=== PATIENT | female | born 1935 | race Caucasian/White ===

== ENCOUNTER → 2016-09-05 | Emergency (ER) | payer MEDICARE, OTHER ==
[2016-09-05 11:19] LABS: Bilirubin Negative (Negative); Blood, Urine Negative (Negative); Clarity Clear (Clear); Glucose, Urine (Dipstick) Negative (Negative); Leukocyte Negative (Negative); Nitrite Negative (Negative); Protein, Urine (Dipstick) Negative (Neg-Trace); Urobilinogen 0.2 mg/dL (0.2-1.0); pH, Urine 6.5 (5.0-9.0)
[2016-09-05 11:34] LABS: Bacteria/HPF Rare-Few HPF (None Seen); RBC/HPF None Seen HPF (0-3); Squamous Epithelial 0-3 HPF (0-3); WBC/HPF None Seen HPF (0-3)
--- NOTE | 2016-09-05 13:17 | RAD ---
THREE VIEWS LUMBAR SPINE: INDICATION: Lumbar spine pain. FINDINGS: There is retrolisthesis of L2 on L3. There is anterolisthesis of L4 on L5. There is advanced degen erative disk disease at L3-4, L4-5, and L5-S1. There is degenerative dextroscoliosis of the lumbar spine. No acute fracture or subluxation is evident. There are mild vascular calcifications involvi ng abdominopelvic vasculature. There are cholecystectomy clips within the right upper quadrant. IMPRESSION: 1. No acute osseous abnormality. 2. Moderate to severe multilevel spondylosis of the lumbar spine. POS: DAVID
== END ==
LOC: MADERS 10:33
DX: M62.830 Muscle spasm of back (principal); I10 Essential (primary) hypertension; I48.91 Unspecified atrial fibrillation; Z79.899 Other long term (current) drug therapy
CPT/HCPCS: 72100; 81001

== ENCOUNTER 2017-06-04 11:49 | Outpatient (CLI) | payer MEDICARE, OTHER ==
[2017-06-04 12:51] LABS: ALT (SGPT) 13 U/L (8-55); AST (SGOT) 27 U/L (5-34); Albumin 4.3 g/dL (3.4-4.8); Alkaline Phosphatase 61 U/L (40-150); Anion Gap 18 mmol/L (10-20); BUN (Urea Nitrogen) 34 mg/dL (9.8-20.1); Bilirubin, Total 0.4 mg/dL (0.2-1.2); Calc. Creatinine Clearance 0 mL/min (70-130); Calcium 9.6 mg/dL (7.8-10.44); Carbon Dioxide 24 mmol/L (23-31); Chloride 103 mmol/L (98-107); Estimated GFR-MDRD 53; Globulin 2.9 g/dL (2.4-3.5); Glucose 84 mg/dL (83-110); Protein, Total 7.2 g/dL (6.0-8.3); Sodium 140 mmol/L (136-145)
== END 2017-06-04 11:50 | disposition home or self-care (01) ==
LOC: MADLAB 11:49
PROVIDERS: ATTEND Internal Medicine Gastroenterology
DX: R10.9 Unspecified abdominal pain (principal)
CPT/HCPCS: 36415; 80053

== ENCOUNTER 2018-04-19 01:36 | Emergency (ER) | payer MEDICARE, OTHER ==
[2018-04-19 02:38] LABS: #Basophils 0.1 thou/uL (0.0-0.2); #Eosinphils 0.4 thou/uL (0.0-0.7); #Lymphocytes 1.8 thou/uL (1.20-3.40); #Monocytes 0.7 thou/uL (0.11-0.59); #Neutrophils 4.4 thou/uL (1.40-6.50); %Basophils 1.7 % (0.0-1.0); %Eosinophils 5.9 % (0.0-10.0); %Lymphocytes 24.2 % (21.0-51.0); %Monocytes 8.9 % (0.0-10.0); %Neutrophils 59.3 % (42.0-75.0); Hemoglobin 12.2 g/dL (12.0-16.0); Mean Corpuscular HGB CONC 33.8 g/dL (32.0-36.0); Mean Corpuscular Volume 94.7 fL (78.0-98.0); Mean Platelet Volume 10.1 fL (7.4-10.4); Platelet Count 220 thou/uL (130-400); RBC Distribution Width 12.2 % (11.5-14.5); White Blood Cell (WBC) Count 7.3 thou/uL (4.8-10.8)
[2018-04-19 02:50] LABS: ALT (SGPT) 14 U/L (8-55); AST (SGOT) 28 U/L (5-34); Albumin 4.5 g/dL (3.4-4.8); Alkaline Phosphatase 55 U/L (40-150); Anion Gap 14 mmol/L (10-20); BUN (Urea Nitrogen) 38 mg/dL (9.8-20.1); Bilirubin, Total 0.3 mg/dL (0.2-1.2); Calc. Creatinine Clearance 0 mL/min (70-130); Calcium 9.8 mg/dL (7.8-10.44); Carbon Dioxide 26 mmol/L (23-31); Chloride 104 mmol/L (98-107); Estimated GFR-MDRD 36; Globulin 2.4 g/dL (2.4-3.5); Glucose 119 mg/dL (83-110); Potassium 4.3 mmol/L (3.5-5.1); Protein, Total 6.9 g/dL (6.0-8.3); Sodium 140 mmol/L (136-145)
[2018-04-19 02:51] LABS: Digoxin Less than 0.15 ng/mL (0.8-2.0)
[2018-04-19 02:52] LABS: CKMB 2.7 ng/mL (0-6.6)
[2018-04-19] MEDS ORDERED: Furosemide 40 MG/4 ML VIAL ONE (02:59)
--- NOTE | 2018-04-19 08:35 | RAD ---
FRONTAL VIEW CHEST Date: 04/19/18 CLINICAL INDICATION: Dyspnea. FINDINGS: There is evidence of fluid overload with an enlarged cardiac silhouette, pulmonary vascular, and diff use interstitial opacification. Hazy densities at each lower hemithorax may be related to pleural flu id. Chest is otherwise similar appearing. IMPRESSION: Evidence to indicate decompensated CHF. Continued follow-up is warranted. POS: ALY
== END 2018-04-19 04:20 | disposition short-term general hospital (02) ==
LOC: MADERS 01:36
DX: I11.0 Hypertensive heart disease with heart failure (principal); I50.9 Heart failure, unspecified; I48.91 Unspecified atrial fibrillation; E78.5 Hyperlipidemia, unspecified
CPT/HCPCS: 71045; 80053; 80162; 82553; 83880; 84484; 85025; 93005; 94760; 96374; J1940; J7620

== ENCOUNTER 2018-10-30 11:24 | Emergency (ER) | payer MEDICARE, OTHER ==
[~2018-10-30 11:24] MED LIST: Lactated Ringer's 1,000 ML BAG ONE
[2018-10-30] MEDS ORDERED: Aspirin Chewable 81 MG TAB ONE (11:42)
--- NOTE | 2018-10-30 11:49 | RAD ---
EXAM: Chest one view: HISTORY: Chest pain COMPARISON: 04/18/2018 FINDINGS: Heart size: Minimal cardiomegaly. The lungs: Clear of acute process. No evidence for pneumonia, pleural effusion, acute edema, or pneumothorax, or other significant acute process. IMPRESSION: No significant acute intrathoracic disease. Improved appearance of the chest with resolution of the previously noted interstitial edema and pleur al effusions.
[2018-10-30 11:53] LABS: #Basophils 0.1 thou/uL (0.0-0.2); #Eosinphils 0.3 thou/uL (0.0-0.7); #Lymphocytes 1.3 thou/uL (1.20-3.40); #Monocytes 0.7 thou/uL (0.11-0.59); #Neutrophils 3.7 thou/uL (1.40-6.50); %Basophils 1.6 % (0.0-1.0); %Eosinophils 5.4 % (0.0-10.0); %Lymphocytes 20.8 % (21.0-51.0); %Monocytes 11.7 % (0.0-10.0); %Neutrophils 60.5 % (42.0-75.0); Hemoglobin 12.2 g/dL (12.0-16.0); Mean Corpuscular HGB CONC 33.6 g/dL (32.0-36.0); Mean Corpuscular Hemoglobin 31.4 pg (27.0-31.0); Mean Corpuscular Volume 93.7 fL (78.0-98.0); Platelet Count 286 thou/uL (130-400); RBC Distribution Width 12.1 % (11.5-14.5); Red Blood Cell (RBC) Count 3.87 mill/uL (4.20-5.40); White Blood Cell (WBC) Count 6.1 thou/uL (4.8-10.8)
[2018-10-30] MEDS ORDERED: Nitroglycerin 2% Ointment 1 INCH/1 GM Packet ONE ×2 (11:58→12:06)
[2018-10-30 12:14] LABS: ALT (SGPT) 27 U/L (8-55); AST (SGOT) 66 U/L (5-34); Albumin 4.4 g/dL (3.4-4.8); Alkaline Phosphatase 118 U/L (40-150); Anion Gap 18 mmol/L (10-20); BUN (Urea Nitrogen) 33 mg/dL (9.8-20.1); Bilirubin, Total 0.3 mg/dL (0.2-1.2); CK (CPK) 98 U/L (29-168); Calc. Creatinine Clearance 0 mL/min (70-130); Carbon Dioxide 25 mmol/L (23-31); Chloride 103 mmol/L (98-107); Estimated GFR-MDRD 50; Glucose 96 mg/dL (83-110); Lipase 50 U/L (8-78); Potassium 5.1 mmol/L (3.5-5.1); Protein, Total 7.4 g/dL (6.0-8.3); Sodium 141 mmol/L (136-145)
== END 2018-10-30 13:13 | disposition short-term general hospital (02) ==
LOC: MADERS 11:24
DX: R07.2 Precordial pain (principal)
CPT/HCPCS: 71045; 80053; 82550; 83690; 84484; 85025; 85379; 93005; 94760; 96360; J7120

== ENCOUNTER 2021-01-19 13:32 | Emergency (ER) | payer MEDICARE, OTHER ==
[2021-01-19 14:25] LABS: #Basophils 0.1 thou/uL (0.0-0.2); #Eosinphils 0.2 thou/uL (0.0-0.7); #Lymphocytes 0.7 thou/uL (1.20-3.40); #Monocytes 0.4 thou/uL (0.11-0.59); %Basophils 2.7 % (0.0-1.0); %Eosinophils 6.5 % (0.0-10.0); %Monocytes 11.4 % (0.0-10.0); %Neutrophils 58.3 % (42.0-75.0); Hemoglobin 10.5 g/dL (12.0-16.0); Mean Corpuscular HGB CONC 34.2 g/dL (32.0-36.0); Mean Corpuscular Hemoglobin 33.9 pg (27.0-31.0); Mean Corpuscular Volume 98.9 fL (78.0-98.0); Mean Platelet Volume 10.9 fL (7.4-10.4); Platelet Count 226 thou/uL (130-400); White Blood Cell (WBC) Count 3.5 thou/uL (4.8-10.8)
[2021-01-19 14:33] LABS: ALT (SGPT) 16 U/L (8-55); AST (SGOT) 31 U/L (5-34); Albumin 3.9 g/dL (3.4-4.8); Alkaline Phosphatase 59 U/L (40-110); Anion Gap 14 mmol/L (10-20); BUN (Urea Nitrogen) 56 mg/dL (9.8-20.1); Bilirubin, Total 0.4 mg/dL (0.2-1.2); Calc. Creatinine Clearance 0 mL/min (70-130); Calcium 8.9 mg/dL (7.8-10.44); Carbon Dioxide 26 mmol/L (23-31); Chloride 103 mmol/L (98-107); Globulin 2.5 g/dL (2.4-3.5); Glucose 142 mg/dL (83-110); Magnesium 2.1 mg/dL (1.6-2.6); Potassium 4.6 mmol/L (3.5-5.1); Protein, Total 6.4 g/dL (5.8-8.1); Sodium 138 mmol/L (136-145)
[2021-01-19 18:02] LABS: SARS-CoV-2 NAA Rapid Test Not Detected (NotDetected)
== END 2021-01-19 17:29 | disposition short-term general hospital (02) ==
LOC: MADERS 13:32
DX: R55 Syncope and collapse (principal); J39.2 Other diseases of pharynx; R07.9 Chest pain, unspecified; I13.0 Hypertensive heart and chronic kidney disease with heart failure and stage 1 through stage 4 chronic kidney disease, or unspecified chronic kidney disease; N18.9 Chronic kidney disease, unspecified; I50.9 Heart failure, unspecified; R42 Dizziness and giddiness; Z20.822 Contact with and (suspected) exposure to COVID-19; E78.5 Hyperlipidemia, unspecified; E78.00 Pure hypercholesterolemia, unspecified; I48.91 Unspecified atrial fibrillation; Z79.899 Other long term (current) drug therapy; Z79.82 Long term (current) use of aspirin
CPT/HCPCS: 70450; 71045; 80053; 83735; 83880; 84484; 85025; 93005; U0002

== ENCOUNTER 2022-09-23 16:35 | Outpatient (CLI) | payer OTHER | END 2022-09-23 16:36 | disposition home or self-care (01) | LOC: MADRAD 16:35 | PROVIDERS: ATTEND Nurse Practitioner Family | DX: M25.561 Pain in right knee (principal); M17.11 Unilateral primary osteoarthritis, right knee ==

== ENCOUNTER 2022-10-18 18:39 | Emergency (ER) | payer OTHER ==
[~2022-10-18 18:39] MED LIST changes: +Iopamidol 370 76% 100 ML VIAL ONE; -Lactated Ringer's 1,000 ML BAG ONE
[2022-10-18] MEDS ORDERED: Morphine 2 MG/ML VIAL ONE (20:01)
[2022-10-18] MEDS ORDERED: Sodium Chloride 0.9% 1,000 ML ONE (20:01)
[2022-10-18] MEDS ORDERED: Ondansetron PF 4 MG/2 ML Vial ONE (20:01)
[2022-10-18 20:14] LABS: Band 1 % (5-11); Hemoglobin 13.4 g/dL (12.0-16.0); Lymphocytes 7 % (21-51); MDiff Complete? YES; Mean Corpuscular Hemoglobin 32.9 pg (27.0-31.0); Mean Corpuscular Volume 96.8 fl (78.0-98.0); Monocytes 10 % (0-10); Neutrophil 82 % (42-75); Platelet Count 259 10x3/uL (130-400); Platelet Morphology Comment Appears Adequate; RBC Distribution Width 13.5 % (11.5-14.5); Red Blood Cell (RBC) Count 4.08 mill/uL (4.20-5.40); White Blood Cell (WBC) Count 12.6 10x3/uL (4.8-10.8)
[2022-10-18 20:22] LABS: ALT (SGPT) 63 U/L (8-55); AST (SGOT) 101 U/L (5-34); Albumin 4.3 g/dL (3.4-4.8); Alkaline Phosphatase 110 U/L (40-110); Anion Gap 15 mmol/L (10-20); BUN (Urea Nitrogen) 51 mg/dL (9.8-20.1); Bilirubin, Total 0.5 mg/dL (0.2-1.2); Calc. Creatinine Clearance 0 mL/min (70-130); Calcium 9.1 mg/dL (7.8-10.44); Carbon Dioxide 23 mmol/L (23-31); Chloride 101 mmol/L (98-107); Estimated GFR 41; Globulin 2.5 g/dL (2.4-3.5); Glucose 107 mg/dL (83-110); Lipase 27 U/L (8-78); Potassium 5.5 mmol/L (3.5-5.1); Protein, Total 6.8 g/dL (5.8-8.1); Sodium 133 mmol/L (136-145)
[2022-10-18 20:35] LABS: Bilirubin Negative (Negative); Blood, Urine Negative (Negative); Clarity Clear (Clear); Glucose, Urine (Dipstick) 500 mg/dL (Negative); Ketone, Urine Negative (Negative); Leukocyte Negative (Negative); Nitrite Negative (Negative); Protein, Urine (Dipstick) Trace mg/dL (Neg-Trace); Specific Gravity, Urine 1.015 (1.005-1.030); Urobilinogen 0.2 mg/dL (Less than 2)
[2022-10-18] MEDS ORDERED: Dicyclomine 10 MG CAP ONE (21:54)
== END 2022-10-18 22:16 | disposition home or self-care (01) ==
LOC: MADERS 18:39
DX: K59.00 Constipation, unspecified (principal); D72.829 Elevated white blood cell count, unspecified; I12.9 Hypertensive chronic kidney disease with stage 1 through stage 4 chronic kidney disease, or unspecified chronic kidney disease; N18.30 Chronic kidney disease, stage 3 unspecified; E78.00 Pure hypercholesterolemia, unspecified
CPT/HCPCS: 74177; 80053; 83690; 85025; 87086; 96374; 96375; J2272; J2405; J7050; Q9967